=== PATIENT | female | born 1995 | race Caucasian/White ===

== ENCOUNTER 2019-05-10 15:52 | Outpatient (CLI) | payer OTHER ==
--- NOTE | 2019-05-10 16:13 | RAD ---
Exam:3 views right foot HISTORY: Pain. Swelling. Symptoms x2 weeks. COMPARISON: None FINDINGS: Lisfranc alignment is maintained. No fracture, cortical irregularity or periosteal reaction . Preserved joint spaces. IMPRESSION: Unremarkable 3 views right foot.
== END 2019-05-10 15:53 | disposition home or self-care (01) ==
LOC: BICRAD 15:52
DX: M79.671 Pain in right foot (principal)